=== PATIENT | female | born 1955 | race Caucasian/White ===

== ENCOUNTER 2018-04-17 08:24 | Inpatient (IN) ==
--- NOTE | 2018-04-17 09:01 | Emergency Department Note ---
Disposition Clinical Impression: Incidental lung nodule, greater than or equal to 8mm ARF (acute renal failure) Qualifiers: Acute renal failure type: unspecified Qualified Code(s): N17.9 - Acute kidney failure, unspecified Falls Qualifiers: Encounter type: initial encounter Qualified Code(s): W19.XXXA - Unspecified fall, initial encounter Toe fracture, left Qualifiers: Encounter type: initial encounter Toe: unspecified toe Fracture type: closed Fracture alignment: displaced Qualified Code(s): S92.912A - Unspecified fracture of left toe(s), initial encounter for closed fracture Disposition: Admitted As Inpatient Condition: Fair General Adult HPI - General Chief complaint: ED Weakness Stated complaint: fall/weakness Nursing Notes Reviewed: Yes Vital Signs Reviewed: Yes - History of Present Illness HPI Narrative: 62-year-old female presents to the emergency department via EMS after having multiple falls this past week. EMS states that family said patient has been acting normal per them. No changes in mental status. Patient states she was getting out of bed, started feeling dizzy as she has in the previous days, and fell lobar into a dresser, injuring her left fifth metatarsal. Patient states that she is not dizzy right now. She denies any chest pain, pressure, tightness , palpitations. She denies any fever. Patient denies any use of alcohol or drugs other than the morphine that she takes for chronic pain. Patient not reporting any pain anywhere else. Patient uses CPAP and oxygen at nighttime. - Related Data Home Medications Medication Instructions Recorded Confirmed Amitriptyline [Elavil] 50 mg PO HS 04/17/18 04/17/18 Cetirizine HCl [All Day Allergy] 10 mg PO DAILY 04/17/18 04/17/18 Citalopram Hydrobromide 40 mg PO DAILY 04/17/18 04/17/18 [Citalopram HBr] Esomeprazole Magnesium [Nexium] 40 mg PO BID 04/17/18 04/17/18 Gabapentin [Neurontin] 600 mg PO BID 04/17/18 04/17/18 Gemfibrozil [Lopid] 600 mg PO BID 04/17/18 04/17/18 Levothyroxine [Synthroid] 50 mcg PO 0630 04/17/18 04/17/18 Losartan [Cozaar] 25 mg PO DAILY 04/17/18 04/17/18 Mirtazapine [Remeron] 30 mg PO HS 04/17/18 04/17/18 Morphine Sulfate [Arymo ER] 60 mg PO BID 04/17/18 04/17/18 OxyCODONE/APAP 5/325 [Percocet 1 tab PO DAILY PRN 04/17/18 04/17/18 5/325 MG] Tizanidine HCl [Tizanidine HCl] 4 mg PO TID 04/17/18 04/17/18 hydrOXYzine pamoate [HydrOXYzine 50 mg PO BID 04/17/18 04/17/18 Pamoate] Allergies Allergy/AdvReac Type Severity Reaction Status Date / Time lisinopril Allergy See Verified 04/17/18 08:33 Comments mometasone furoate Allergy See Verified 04/17/18 08:33 [From Nasonex] Comments All systems ED: reviewed and negative except as stated. Review of Systems: As Per HPI Constitutional: Denies: fever Cardiovascular: Denies: chest pain Respiratory: Reports: dyspnea. Denies: cough Gastrointestinal: Denies: abdominal pain, nausea, vomiting Genitourinary: Denies: urgency, dysuria, frequency Musculoskeletal: Denies: back pain, neck pain Integumentary: Denies: rash Neurological: Reports: weakness. Denies: headache, numbness, paresthesias Physical Exam - General General appearance: appears intoxicated - Head Head exam: atraumatic, normocephalic - Eye Eye exam: Present: EOMI, miosis. Absent: scleral icterus, conjunctival injection - ENT ENT exam: normal exam, normal oropharynx - Neck Neck exam: Present: trachea midline - Chest Chest inspection: Present: normal inspection, symmetric chest wall rise - Respiratory Respiratory exam: Present: normal lung sounds bilaterally. Absent: respiratory distress, accessory muscle use - Cardiovascular Cardiovascular exam: Present: normal rhythm, tachycardia - Abdominal Exam Abdominal exam: Present: soft, Non-Tender. Absent: distention, guarding, rebound - Extremities Exam Extremities exam: Present: other (Tenderness along the base of the left fifth metatarsal, lower extremities neurovascularly intact). Absent: pedal edema - Back Exam Back exam: Present: full ROM. Absent: tenderness - Neurological Exam Neurological exam: Present: alert, oriented X3, CN II-XII intact - Psychiatric Psychiatric exam: Present: anxious - Skin Skin exam: Present: warm, dry, intact, normal color. Absent: rash Course Vital Signs Temperature 98.9 F 04/17/18 08:33 Pulse Rate 106 04/17/18 08:33 Respiratory Rate 15 04/17/18 08:33 Blood Pressure 111/98 04/17/18 08:33 O2 Sat by Pulse Oximetry 96 04/17/18 08:33 Temperature 98.9 F 04/17/18 11:44 Pulse Rate 73 04/17/18 11:44 Respiratory Rate 21 04/17/18 11:44 Blood Pressure 114/82 04/17/18 11:44 O2 Sat by Pulse Oximetry 94 04/17/18 11:44 Oxygen Delivery Oxygen Delivery Nasal Cannula Medical Decision Making - [facility] Narrative Medical decision making narrative: 62-year-old female presents emergency Department with having a week of episodes of weakness, dizziness, lightheadedness, falls. Electrocardiogram does not reveal any evidence of [id number], Brugada syndrome, hypertrophic cardiomyopathy, QT prolongation, or any other arrhythmia. We are obtaining a CT of the head and neck. We are also obtaining chest x-ray, left foot x-ray. D -dimer because patient is tachycardic and hypoxic on room air. Patient does not normally use oxygen on a daily basis, just at night. Head CT was negative for any evidence of intracranial hemorrhage. Chest x-ray was negative. Cervical spine CT revealed no acute fracture subluxation of the cervical spine. There was an 8 mm noncalcified nodule within the left lung apex. Foot x-ray revealed a nondisplaced oblique fracture of the distal fifth metacarpal. There is also mild displaced transverse fracture at the base of the possible findings of the fifth digit with nondisplaced fracture of the proximal third and fourth phalanges. I spoke with orthopedic surgery on the phone and they agree to follow the patient in the hospital. Patient was placed in a walking boot. Patient has creatinine here 3.23. Potassium is within normal limits. No known history of chronic kidney disease. Patient was given a liter of fluid here in the emergency department. Urinalysis was ordered but not obtained prior to patient being sent up to the floor. Patient hemodynamically stable and not in any acute distress at time of admission. Hospitalist agreed to accept admission. Head CT 04/17/18 08:35 IMPRESSION: 1. Study limited by patient motion artifact. 2. No acute intracranial abnormality. 3. No acute fracture or subluxation of the cervical spine. 4. Patient status post anterior cervical discectomy and fusion at the C4 through C6 levels. 5. There is an 8 mm noncalcified nodule within the left lung apex. Suggest further characterization with a routine non urgent follow-up chest CT at the patient's earliest convenience. D/ / 04/17/2018 10:01:26 Usama Leyva MD / raine Interpreting Provider: Usama Leyva MD Chest X-Ray 04/17/18 08:36 IMPRESSION: Negative chest. D/ / Chase Marie MD / Chase Marie MD Interpreting Provider: Chase Marie MD Cervical Spine CT 04/17/18 08:37 IMPRESSION: 1. Study limited by patient motion artifact. 2. No acute intracranial abnormality. 3. No acute fracture or subluxation of the cervical spine. 4. Patient status post anterior cervical discectomy and fusion at the C4 through C6 levels. 5. There is an 8 mm noncalcified nodule within the left lung apex. Suggest further characterization with a routine non urgent follow-up chest CT at the patient's earliest convenience. D/ / 04/17/2018 10:01:26 Usama Leyva MD / raine Interpreting Provider: Usama Leyva MD Foot X-Ray 04/17/18 08:55 IMPRESSION: 1. Acute mildly displaced transverse fracture at the base of the proximal phalanx of 5th digit with associated nondisplaced fractures of the proximal 3rd and 4th phalanges. 2. There is a subtle nondisplaced oblique fracture of the distal 5th metacarpal which appears subacute to chronic in etiology. D/ / 04/17/2018 09:29:24 Lynette Frye MD / raine Interpreting Provider: Lynette Frye MD Knee X-Ray 04/17/18 10:06 IMPRESSION: No acute osseous abnormality. Osteoarthritis with small joint effusion. D/ / 04/17/2018 10:32:00 Bony Cortes MD / [email or web address] Interpreting Provider: Bony Cortes MD - Lab Data Result diagrams: 04/17/18 08:52 04/17/18 08:52 Lab Results 04/17/18 04/17/18 04/17/18 Range/Units 08:52 08:52 08:52 WBC 7.8 (4.3-11.1) K/mcL RBC 3.60 L (3.82-4.97) M/mcL Hgb 11.3 L (11.5-15.4) g/dL Hct 33.7 L (35.3-44.9) % MCV 93.6 (83.0-100.0) fL MCH 31.4 (28.0-33.3) pg MCHC 33.5 (31.6-35.5) g/dL RDW 13.4 (11.5-14.5) % Plt Count 226 (140-400) K/mcL MPV 9.6 (9.4-12.4) fL Immature Gran % 0.3 (0-4) % Seg Neutrophils % 57.7 % Lymphocytes % 33.4 % Monocytes % 6.4 % Eosinophils % 2.1 % Basophils % 0.1 % Neutrophils # 4.5 (1.6-8.9) K/mcL Lymphocytes # 2.6 (0.6-4.6) K/mcL Monocytes # 0.5 (0.0-1.3) K/mcL Eosinophils # 0.2 (0.0-0.6) K/mcL Basophils # 0.0 (0.0-0.2) K/mcL Sodium 131 L (136-145) mEq/L Potassium 4.7 (3.5-5.1) mEq/L Chloride 97 L (98-107) mEq/L Carbon Dioxide 24 (23-29) mEq/L BUN 38 H (8-23) mg/dL Creatinine 3.23 H (0.60-1.20) mg/dL Est GFR ( Amer) 18 L (> 60) Est GFR (Non-Af Amer) 15 L (> 60) BUN/Creatinine Ratio 12 (6-26) Glucose 139 H (70-105) mg/dL Calculated Osmolality 283 (280-300) Calcium 9.0 (8.6-10.3) mg/dL Phosphorus 6.1 H (2.7-4.5) mg/dL Magnesium 2.6 (1.6-2.6) mg/dL Total Bilirubin 0.3 (0.3-1.0) mg/dL AST 17 (13-39) Units/L ALT 12 (7-52) Units/L Alkaline Phosphatase 74 (34-104) Units/L Ammonia (16-53) mcmol/L Troponin I < 0.03 (< 0.04) ng/mL B-Natriuretic Peptide 51 (Less than 100) pg/mL Serum Total Protein 7.2 (6.4-8.9) g/dL Albumin 4.4 (3.5-5.7) g/dL Globulin 2.8 (2.4-3.5) g/dL Albumin/Globulin Ratio 1.6 (1.1-2.2) Lipase 24 (11-82) Units/L TSH 0.882 (0.340-5.600) mcIU/mL 04/17/18 Range/Units 08:52 WBC (4.3-11.1) K/mcL RBC (3.82-4.97) M/mcL Hgb (11.5-15.4) g/dL Hct (35.3-44.9) % MCV (83.0-100.0) fL MCH (28.0-33.3) pg MCHC (31.6-35.5) g/dL RDW (11.5-14.5) % Plt Count (140-400) K/mcL MPV (9.4-12.4) fL Immature Gran % (0-4) % Seg Neutrophils % % Lymphocytes % % Monocytes % % Eosinophils % % Basophils % % Neutrophils # (1.6-8.9) K/mcL Lymphocytes # (0.6-4.6) K/mcL Monocytes # (0.0-1.3) K/mcL Eosinophils # (0.0-0.6) K/mcL Basophils # (0.0-0.2) K/mcL Sodium (136-145) mEq/L Potassium (3.5-5.1) mEq/L Chloride (98-107) mEq/L Carbon Dioxide (23-29) mEq/L BUN (8-23) mg/dL Creatinine (0.60-1.20) mg/dL Est GFR ( Amer) (> 60) Est GFR (Non-Af Amer) (> 60) BUN/Creatinine Ratio (6-26) Glucose (70-105) mg/dL Calculated Osmolality (280-300) Calcium (8.6-10.3) mg/dL Phosphorus (2.7-4.5) mg/dL Magnesium (1.6-2.6) mg/dL Total Bilirubin (0.3-1.0) mg/dL AST (13-39) Units/L ALT (7-52) Units/L Alkaline Phosphatase (34-104) Units/L Ammonia 45 (16-53) mcmol/L Troponin I (< 0.04) ng/mL B-Natriuretic Peptide (Less than 100) pg/mL Serum Total Protein (6.4-8.9) g/dL Albumin (3.5-5.7) g/dL Globulin (2.4-3.5) g/dL Albumin/Globulin Ratio (1.1-2.2) Lipase (11-82) Units/L TSH (0.340-5.600) mcIU/mL - EKG Data EKG #1 EKG attestation: Yes I reviewed and interpreted this EKG. EKG results narrative: 8:27 Ventricular rate 108 bpm, TN interval 136 ms, QRS duration 101 ms, QT 325 ms, QTC 388 ms, left axis deviation. Sinus tachycardia with a ventricular rate of 108 bpm. There is no evidence of any ischemic ST changes noted on this electrocardiogram. There is no previous electrocardiogram to compare this study to Attestation Statement - Attestation Attestation: I, Ramos Kelsey, examined this patient and my medical decision-making was reviewed with the AIRPLANE RENTAL CLERK/PA/Advanced Practice Nurse/Resident Physician. I agree with the documented findings, disposition and treatment plan as described except to the extent set forth below. 62-year-old female presents emergency Department with concerns of altered mental status and multiple falls over the past 2 days. Family members state the patient is under a large amount of stress recently as her 3 weeks ago, she moved into the daughter's house within the past week. Patient is unable to give a history regarding her case and presentation due to altered mental status. Patient has swelling of the left lateral foot. She complains of pain to the right knee. On laboratory evaluation the patient has an elevated creatinine of 3.23. Family states there is no history of chronic kidney disease. CT of the head and neck were negative for acute fracture or intracranial hemorrhage. X-ray of the left foot shows fractures of the fourth and fifth phalanges. It is unclear patient has been taking her correct prescribed medications. Patient will be admitted for further care and evaluation.
[2018-04-17 09:11] LABS: Basophils % 0.1 %; Eosinophils # 0.2 K/mcL (0.0-0.6); Eosinophils % 2.1 %; Hematocrit 33.7 % (35.3-44.9); Hemoglobin 11.3 g/dL (11.5-15.4); Immature Granulocytes % 0.3 % (0-4); Lymphocytes # 2.6 K/mcL (0.6-4.6); Lymphocytes % 33.4 %; Mean Corpuscular HGB Conc 33.5 g/dL (31.6-35.5); Mean Corpuscular Hemoglobin 31.4 pg (28.0-33.3); Mean Corpuscular Volume 93.6 fL (83.0-100.0); Mean Platelet Volume 9.6 fL (9.4-12.4); Monocytes # 0.5 K/mcL (0.0-1.3); Monocytes % 6.4 %; Neutrophils # 4.5 K/mcL (1.6-8.9); Platelet Count 226 K/mcL (140-400); Red Cell Distribution Width 13.4 % (11.5-14.5); Segmented Neutrophils % 57.7 %
[2018-04-17 09:25] LABS: Alanine Aminotransferase 12 Units/L (7-52); Albumin 4.4 g/dL (3.5-5.7); Albumin/Globulin Ratio 1.6 (1.1-2.2); Alkaline Phosphatase 74 Units/L (34-104); Aspartate Amino Transferase 17 Units/L (13-39); BUN/Creatinine Ratio 12 (6-26); Bilirubin,Total 0.3 mg/dL (0.3-1.0); Blood Urea Nitrogen 38 mg/dL (8-23); Carbon Dioxide 24 mEq/L (23-29); Chloride 97 mEq/L (98-107); Globulin 2.8 g/dL (2.4-3.5); Glucose 139 mg/dL (70-105); Lipase 24 Units/L (11-82); Osmolality,Calculated 283 (280-300); Potassium 4.7 mEq/L (3.5-5.1); Sodium 131 mEq/L (136-145); Total Protein 7.2 g/dL (6.4-8.9); Troponin I < 0.03 ng/mL (< 0.04); eGFR For African Americans 18 (> 60); eGFR For Non-African Americans 15 (> 60)
[2018-04-17] MEDS ORDERED: 0.9 % Sodium Chloride 1,000 ML IVC ONE (09:25)
[2018-04-17 09:38] LABS: Thyroid Stimulating Hormone 0.882 mcIU/mL (0.340-5.600)
[2018-04-17 10:24] LABS: Magnesium 2.6 mg/dL (1.6-2.6); Phosphorous 6.1 mg/dL (2.7-4.5)
[2018-04-17] MEDS ORDERED: *HR* OxyCODONE/APAP 5/325 TABLET PO PRN (11:34)
--- NOTE | 2018-04-17 11:50 | Internal Med History&Physical ---
Date of Encounter: 04/17/18 Time of Encounter: 11:37 Internal Medicine - H&P: HPI Chief complaint: fall Admitted From: Home Plans for Post Hospital Care: Transfer [facility] Facility History of present illness: Ms. Stewart is a 62 year old female who has history of COPD a fibromyalgia hypertension depression anxiety GERD hypothyroidism chronic in neck pain presenting emergency room for multiple falls this morning. Patient lives with her daughter, at home, this morning she woke up at 3 AM fell off her bed, then around the 7 AM she fell again when she was walking. Patient does have chronic movement disorder but never see a neurologist. And the family notes is that she has jerking movemnt, and unable to control her arm movement for 2 days. She is unable to control her movement. Patient denies family history of Hodgkin 's disease. She is also confused this morning per family. When I saw her, she is alert oriented 3 she does have difficult to find words. she did not remember the medication name. Otherwise she denies fever or chills denies productive cough no chest pain diarrhea or constipation. In the emergency room she had WBC 7.8 hemoglobin 11.3 sodium 131 creatinine 3.23, no baseline. She denies kidney disease. CT of the head and neck were negative for acute fracture or intracranial hemorrhage. X-ray of the left foot shows fractures of the fourth and fifth phalanges. Orthopedic surgery was called by the ED physician. Patient is going to be admitted for #1fall and movement disorder , MRI brain, consult neurology#2 altered mental status, check ABG #3 left foot fracture- ortho consult#4 acute renal failure, IVF #5 chronic neck and back pain Past Med Surg Social Fam HX - Past Medical History Medical history: COPD, hyperlipidemia, thyroid disease, other Psychiatric history: anxiety, depression - Social History Smoking Status: Never smoker Smokeless Tobacco Status: No Alcohol use: none Drug use: none Internal Medicine - H&P: Meds Amitriptyline [Elavil] 50 mg PO HS 04/17/18 [History] Cetirizine HCl [All Day Allergy] 10 mg PO DAILY 04/17/18 [History] Citalopram Hydrobromide [Citalopram HBr] 40 mg PO DAILY 04/17/18 [History] Esomeprazole Magnesium [Nexium] 40 mg PO BID 04/17/18 [History] Gabapentin [Neurontin] 600 mg PO BID 04/17/18 [History] Gemfibrozil [Lopid] 600 mg PO BID 04/17/18 [History] Levothyroxine [Synthroid] 50 mcg PO 0630 04/17/18 [History] Losartan [Cozaar] 25 mg PO DAILY 04/17/18 [History] Mirtazapine [Remeron] 30 mg PO HS 04/17/18 [History] Morphine Sulfate [Arymo ER] 60 mg PO BID 04/17/18 [History] OxyCODONE/APAP 5/325 [Percocet 5/325 MG] 1 tab PO DAILY PRN 04/17/18 [History] Tizanidine HCl [Tizanidine HCl] 4 mg PO TID 04/17/18 [History] hydrOXYzine pamoate [HydrOXYzine Pamoate] 50 mg PO BID 04/17/18 [History] 3 Allergy/AdvReac Type Severity Reaction Status Date / Time lisinopril Allergy See Verified 04/17/18 08:33 Comments mometasone furoate Allergy See Verified 04/17/18 08:33 [From Nasonex] Comments All Systems PM: A 10-system review of systems was performed and is negative for pertinent findings except as documented above in the HPI. - Constitutional Vitals: Temp Pulse Resp BP Pulse Ox 98.9 F 99 16 110/47 96 04/17/18 08:33 04/17/18 10:00 04/17/18 11:11 04/17/18 11:11 04/17/18 10:00 General appearance: Present: A&O X 3, morbidly obese, answers questions appropriately Exam: CONSTITUTIONAL: Patient appears as an age appropriate [default value] well developed, in no acute distress. EYES Clear sclerae, bilateral pupils are equal, reactive to light and accommodation. Extraocular movements are intact RESPIRATORY: No accessory muscle use, bilateral clear to auscultation, no wheezing, no crackles/rales. CARDIOVASCULAR: Regular heart rate, normal S1 and S2, no murmurs GASTROINTESTINAL: bowel sounds present, soft, no tenderness. No hepatosplenomegaly. No bilateral CVA tenderness MUSCULOSKELETAL: Joints in normal range of motion, no clubbing, no edema, no cyanosis. Bilateral peripheral pulses 2+ LYMPHATIC no lymphadenopathy in neck, groin and axilla bilaterally, no thyromegaly. NEUROLOGIC: CN II to XII are grossly intact, no focal neurological deficit. Deep tendon reflexes 2+ bilaterally. Normal light touch sensation to upper and lower extremity PSYCHIATRIC: Oriented x3, with good insight, mood is euthymic. No hallucinations or delusions. SKIN: Skin warm and dry, no rashes, no open wound. Internal Med - H&P Results - Labs CBC & Chem 7: 04/17/18 08:52 04/17/18 08:52 - Assessment and plan (1) ARF (acute renal failure) Current Visit: Yes Status: Acute Assessment and plan: Acute renal failure, unknown baseline we will give IV fluids follow up Creatinine tomorrow Qualifiers: Acute renal failure type: unspecified Qualified Code(s): N17.9 - Acute kidney failure, unspecified (2) Movement disorder Current Visit: Yes Status: Acute Assessment and plan: Patient has chronic movement disorder but never see a neurologist, she has increased jerking movement over last 2 days, throwing the cup all over. Will do MRI brain and a consult urologist (3) Foot fracture, left Current Visit: Yes Status: Acute Assessment and plan: Patient fell twice this morning x-ray shows left foot fracture, orthopediac surgery was consulted. Qualifiers: Encounter type: initial encounter Fracture type: closed Qualified Code(s) : S92.902A - Unspecified fracture of left foot, initial encounter for closed fracture (4) Metabolic encephalopathy Current Visit: Yes Status: Acute Assessment and plan: Patient was confused this morning but mental state has been improved per family. She is oriented 3 now but has some difficulty finding words . Pending UA, x-ray was negative. Will do MRI of brain. will check ABG to rule out CO2 narcosis. she had normal ammonia and ,LFT, normal TSH , negative troponin, normal white cells (5) Hypertension Current Visit: Yes Status: Acute Assessment and plan: holld losartan due to ARF Qualifiers: Hypertension type: essential hypertension Qualified Code(s): I10 - Essential (primary) hypertension (6) COPD (chronic obstructive pulmonary disease) Current Visit: Yes Status: Acute Assessment and plan: Patient is is a secondhand smoking, COPD on 2 L negative nasal cannula continuously at home. Qualifiers: COPD type: emphysema Emphysema type: unspecified Qualified Code(s): J43.9 - Emphysema, unspecified (7) Adult hypothyroidism Current Visit: Yes Status: Chronic Assessment and plan: Continue levathyroxine 50 Kaden M (8) Anxiety with depression Current Visit: Yes Status: Chronic Assessment and plan: Continue home meds (9) Morbid obesity Current Visit: Yes Status: Chronic Assessment and plan: Lifestyle modification (10) GISEL (obstructive sleep apnea) Current Visit: Yes Status: Acute Assessment and plan: Continue home CPAP at the night (11) Neck pain Current Visit: Yes Status: Acute Assessment and plan: Patient had neck surgeries the continue home pain medications - Time Spent With Patient Total time spent is greater than 50% in coordination of care (as documented) at patient's floor/unit and/or counseling patient:
[2018-04-17] MEDS ORDERED: Naloxone 0.4 MG/ML INJ IVP PRN (12:07)
[2018-04-17] MEDS: Ringers Solution, Lactated 1,000 ML IVC SCH (13:23)
[2018-04-17] MEDS ORDERED: tiZANidine 4 MG TABLET PO SCH (15:00)
--- NOTE | 2018-04-17 16:20 | Neurology - Consult Note ---
Date of Encounter: 04/17/18 Time of Encounter: 15:17 Assessment and Plan (1) Myoclonic jerking, massive Current Visit: Yes Status: Acute This patient was been having these jerking movements of the arm than the leg likely are myoclonic jerks most likely related to chronic narcotic use along with the renal failure. It is one of the most common side effect associated with morphine therapy especially in the context of renal failure. Currently she is on IV fluids suggested to continue follow the recommendations from nephrology. Certainly we need to decrease the dose of her morphine as she may continue to have these symptoms. Obviously we need to watch her for any withdrawal symptoms due to the fact that she is been on high doses for quite some time. MRI of the brain is been negative for any acute stroke or any other acute intracranial problems. These jerking movements are not seizures. No indication for any antiepileptic therapy at this time. Myoclonus has been described as a neuroexcitatory side effect of high doses of opioids. It has been seen almost exclusively in patients receiving after fpc administration of opioids. Gradual accumulation of opioid metabolites has been thought to cause opioid induced myoclonus. may try Naloxone has usually been ineffective in resolving this condition but some time it may help ? suggest aggressive hydration, and decreasing dose symptoms should decrease gradually at the same time also need to change to a different opioid that may benefit as well. Certainly she need to be on withdrawal precautions and fall precautions. Discussed with the patient and the daughter who is at the bedside (2) Chronic pain disorder Current Visit: Yes Status: Acute (3) Chronic narcotic use Current Visit: Yes Status: Acute (4) ARF (acute renal failure) Current Visit: Yes Status: Acute Qualifiers: Acute renal failure type: unspecified Qualified Code(s): N17.9 - Acute kidney failure, unspecified History of Present Illness HPI: Ms. Stewart is a 62 year old female with history of COPD a fibromyalgia hypertension depression anxiety GERD hypothyroidism chronic neck pain presented to the emergency room for multiple falls. According to the daughter who lives with the patient that she woke up at 3 AM fell off her bed, then around the 7 AM she fell again when she was walking. She has noticed that she is been having these jerking movements of her arms for the last several days that seems to be uncontrolled to the point that she is not able to hold anything in the hand and has these jerking mostly of the arms and also of the leg though she has these movements before but they were not as prominent as she is been having now in the last 2-3 days. She has also noted some confusion but not as bad beside that she did not have any convulsive activity no seizures or any history of seizures. She did have some difficulty with a gait and balance but not as as she is experiencing now she denies fever or chills denies productive cough no chest pain diarrhea or constipation. In the emergency room she had WBC 7.8 hemoglobin 11.3 sodium 131 creatinine 3.23, no baseline. She denies kidney disease. CT of the head and neck were negative for acute fracture or intracranial hemorrhage. Patient has an history of cervical fusion and chronic back problem and is been followed up at the pain clinic in [facility] and has been on morphine along with Percocet for breakthrough pain Past Med Surg Social Fam HX - Past Medical History Medical history: COPD, hyperlipidemia, thyroid disease, other Psychiatric history: anxiety, depression - Social History Smoking Status: Never smoker Smokeless Tobacco Status: No Alcohol use: none Drug use: none Medications and Allergies Amitriptyline [Elavil] 50 mg PO HS 04/17/18 [History] Cetirizine HCl [All Day Allergy] 10 mg PO DAILY 04/17/18 [History] Citalopram Hydrobromide [Citalopram HBr] 40 mg PO DAILY 04/17/18 [History] Esomeprazole Magnesium [Nexium] 40 mg PO BID 04/17/18 [History] Gabapentin [Neurontin] 600 mg PO BID 04/17/18 [History] Gemfibrozil [Lopid] 600 mg PO BID 04/17/18 [History] Levothyroxine [Synthroid] 50 mcg PO 0630 04/17/18 [History] Losartan [Cozaar] 25 mg PO DAILY 04/17/18 [History] Mirtazapine [Remeron] 30 mg PO HS 04/17/18 [History] Morphine Sulfate [Arymo ER] 60 mg PO BID 04/17/18 [History] OxyCODONE/APAP 5/325 [Percocet 5/325 MG] 1 tab PO DAILY PRN 04/17/18 [History] Tizanidine HCl [Tizanidine HCl] 4 mg PO TID 04/17/18 [History] hydrOXYzine pamoate [HydrOXYzine Pamoate] 50 mg PO BID 04/17/18 [History] 3 Allergy/AdvReac Type Severity Reaction Status Date / Time lisinopril Allergy See Verified 04/17/18 08:33 Comments mometasone furoate Allergy See Verified 04/17/18 08:33 [From Nasonex] Comments All Systems: The remainder of the systems were reviewed and are negative Physical Examination - Vital Signs Vital Signs: Initial Vital Signs Temp Pulse Resp BP Pulse Ox 98.9 F 106 15 111/98 96 04/17/18 08:33 04/17/18 08:33 04/17/18 08:33 04/17/18 08:33 04/17/18 08:33 - Exam Exam: GENERAL: Comfortable in no acute distress HEENT: Normal LUNGS: CTA HEART: RRR, S1 S2 Audible, no murmur EXTREMITIES: No Pedal edema. DETAILED NEUROLOGICAL EXAMINATION: MENTAL STATUS: Oriented to person, place, date and situation. Memory: knows the President, Aware of recent events Recent Memory Intact attention and concentration seems to be intact but she did have some confusion Cranial Nerve Examination: CN - II: Visual Acuity, Field of Vision Normal, Fundus examination: No disk edema, Pupils- size shape reaction to light and accommodation: All normal. CN III, IV, : External ocular movements were intact, Pupils were reactive, Nodrooping of the eyelids CN V: Sensation over the face to light touch and pinprick all normal. Corneal reflexes not tested, jaw jerk normal. CN VII: No facial asymmetry, no flattening of nasolabial folds, no difficulty in closing the eyes, no loss of forehead wrinkles, no difficulty in eye-closure, frowning raising eyebrows. CNVIII: No significant hearing loss CN IX, X: Uvula centralized not deviated, Gag reflex: Not tested CN X1: Sternocleidomastoid, trapezius, normal or evidence of any weakness. CN X11: No Dysarthria, no wasting or fibrilation f tongue muscles, no deviation, tongue muscle strength normal. Gait Examination: Deferred - Constitutional General appearance: comfortable - Neurologic Sensorimotor examination: intact Detailed motor examination: grossly full strength in all extremities Motor examination - right side: 4/5: deltoids, biceps, triceps, wrist flexion, wrist extension, replanter, hip flexors, tibialis Anterior, quadriceps, toe extension (EHL), plantarflexion Motor examination - left side: 4/5: deltoids, biceps, triceps, wrist flexion, wrist extension, hip flexors, replanter, quadriceps, tibialis Anterior, toe extension (EHL), plantarflexion Reflex and gait examination: intact Reflexes: Biceps: 1+, Triceps: 1+, Brachioradialis: 1+, Patella: 1+, Achilles: 1 + Mental Status Examination: awake, alert, oriented to person, oriented to place, follows commands appropriately, answers questions appropriately, follows simple commands, localizes noxious stimulation Cranial nerve examination: PERRL, EOMI, visual nails intact, no facial asymmetry is present, no dysarthria (Patient noted to have jerking of both upper and lower extremities off-and-on periodically without any changes in the consciousness.) Results - Laboratory Findings CBC and BMP: 04/17/18 08:52 04/17/18 08:52 Abnormal lab findings: Abnormal lab results RBC 3.60 M/mcL (3.82-4.97) L 04/17/18 08:52 Hgb 11.3 g/dL (11.5-15.4) L 04/17/18 08:52 Hct 33.7 % (35.3-44.9) L 04/17/18 08:52 Sodium 131 mEq/L (136-145) L 04/17/18 08:52 Chloride 97 mEq/L (98-107) L 04/17/18 08:52 BUN 38 mg/dL (8-23) H 04/17/18 08:52 Creatinine 3.23 mg/dL (0.60-1.20) H 04/17/18 08:52 Est GFR ( Amer) 18 (> 60) L 04/17/18 08:52 Est GFR (Non-Af Amer) 15 (> 60) L 04/17/18 08:52 Glucose 139 mg/dL (70-105) H 04/17/18 08:52 Phosphorus 6.1 mg/dL (2.7-4.5) H 04/17/18 08:52 - Diagnostic Findings Additional findings: MRI of the brain and CT of the head reported as negative. MRI of the cervical spine did not show any acute findings but limited study due to significant electrode artifact and due to the movement Consult Discharge Plan - Plan Referrals: NONE,PCP [Primary Care Provider] -
[2018-04-17 16:51] LABS: ABG Base Excess -1 mEq/L (-2 to 3); ABG HCO3 26 mEq/L (21-27); ABG Oxygen Saturation 98 % (95-98); ABG PCO2 50 mmHg (35-45); ABG PH 7.32 pH Units (7.32-7.45); ABG PO2 110 mmHg (85-104); ABG TCO2 27 mEq/L (20-26)
[2018-04-17] MEDS: *HR* Heparin 5,000 UNIT/ML VIAL SQ SCH ×2 (17:51→23:37)
[2018-04-17] MEDS: *HR* Morphine Sulfate SR (12 HR) 30 MG TABLET.ER PO SCH (20:02)
[2018-04-17] MEDS: tiZANidine 4 MG TABLET PO SCH (20:02)
[2018-04-17] MEDS: Gabapentin 300 MG CAPSULE PO SCH (20:02)
[2018-04-17] MEDS: Mirtazapine 15 MG TABLET PO SCH (20:02)
[2018-04-17] MEDS: clonazePAM 0.5 MG TABLET PO SCH (20:02)
[2018-04-17] MEDS: hydrOXYzine pamoate 25 MG CAPSULE PO SCH (20:02)
[2018-04-17] MEDS ORDERED: *HR* Morphine Sulfate SR (12 HR) 60 MG TABLET.ER PO SCH (21:00)
[2018-04-17 21:50] LABS: Bilirubin,Urine Negative (Negative); Blood,Urine Negative (Negative); Clarity,Urine Cloudy (Clear); Color,Urine Yellow (Yellow); Glucose,Urine (UA) Normal (Normal); Ketones,Urine Negative (Negative); Leukocyte Esterase,Urine Small (Negative); Nitrite,Urine Negative (Negative); PH,Urine 5.5 pH Units (5.0-8.0); Protein,Urine Trace mg/dL (Neg-Trace); Urobilinogen,Urine Normal (Normal)
[2018-04-17 21:52] LABS: Bacteria,Urine None Seen per hpf (None-Few); RBC,Urine 0-3 per hpf (0-3); Squamous Epithelial Cell,Urine Many per lpf (None-Few); WBC,Urine 15-30 per hpf (0-3)
[2018-04-17 22:05] LABS: Renal Epithelial Cells,Urine Few per hpf (None-Few)
[2018-04-18 02:09] LABS: Calcium 8.4 mg/dL (8.6-10.3); Chol/HDL Ratio 4.5 (0-4.9); Potassium 5.4 mEq/L (3.5-5.1)
[2018-04-18 02:28] LABS: Hematocrit 29.9 % (35.3-44.9); Hemoglobin 9.6 g/dL (11.5-15.4); Mean Corpuscular HGB Conc 32.1 g/dL (31.6-35.5); Mean Corpuscular Volume 93.4 fL (83.0-100.0); Mean Platelet Volume 9.6 fL (9.4-12.4); Platelet Count 193 K/mcL (140-400); Red Cell Distribution Width 13.1 % (11.5-14.5)
[2018-04-18] MEDS: Ringers Solution, Lactated 1,000 ML IVC SCH (04:21)
[2018-04-18 04:56] LABS: ABG Base Excess 4 mEq/L (-2 to 3); ABG HCO3 33 mEq/L (21-27); ABG Oxygen Saturation 95 % (95-98); ABG PCO2 72 mmHg (35-45); ABG PH 7.27 pH Units (7.32-7.45); ABG PO2 91 mmHg (85-104); ABG TCO2 35 mEq/L (20-26)
[2018-04-18] MEDS: *HR* Heparin 5,000 UNIT/ML VIAL SQ SCH ×2 (09:00→17:50)
[2018-04-18] MEDS: *HR* Morphine Sulfate SR (12 HR) 30 MG TABLET.ER PO SCH (09:03)
[2018-04-18] MEDS: Gabapentin 300 MG CAPSULE PO SCH ×2 (09:03→19:54)
[2018-04-18] MEDS: clonazePAM 0.5 MG TABLET PO SCH ×2 (09:03→19:54)
[2018-04-18] MEDS: hydrOXYzine pamoate 25 MG CAPSULE PO SCH ×2 (09:03→19:54)
[2018-04-18] MEDS: tiZANidine 4 MG TABLET PO SCH ×2 (09:04→19:55)
[2018-04-18] MEDS: Loratadine 10 MG TABLET PO SCH (09:04)
[2018-04-18 09:59] LABS: ABG Base Excess 4 mEq/L (-2 to 3); ABG HCO3 32 mEq/L (21-27); ABG Oxygen Saturation 96 % (95-98); ABG PCO2 65 mmHg (35-45); ABG PH 7.29 pH Units (7.32-7.45); ABG PO2 94 mmHg (85-104); ABG TCO2 34 mEq/L (20-26)
[2018-04-18] MEDS ORDERED: Haloperidol Lactate 5 MG/ML VIAL IM ONE (10:20)
[2018-04-18] MEDS ORDERED: Haloperidol Lactate 5 MG/ML VIAL ONE (10:21)
[2018-04-18 14:46] LABS: ABG Base Excess 5 mEq/L (-2 to 3); ABG HCO3 32 mEq/L (21-27); ABG Oxygen Saturation 94 % (95-98); ABG PCO2 66 mmHg (35-45); ABG PO2 79 mmHg (85-104); ABG TCO2 34 mEq/L (20-26)
[2018-04-18] MEDS ORDERED: Haloperidol Lactate 5 MG/ML VIAL IM PRN (17:38)
[2018-04-18] MEDS: Mirtazapine 15 MG TABLET PO SCH (19:54)
[2018-04-18] MEDS ORDERED: Haloperidol Lactate 5 MG/ML VIAL IM SCH (20:00)
--- NOTE | 2018-04-18 23:14 | Internal Med Progress Note ---
Date of Encounter: 04/18/18 Time of Encounter: 19:00 - Assessment and plan (1) ARF (acute renal failure) Status: Acute Assessment and plan: Likely secondary to volume contraction. She was likely not taking fluids at home. Her creatinine today is 1.63. It was a 3.23 is today. She gets IV fluids. Qualifiers: Acute renal failure type: unspecified Qualified Code(s): N17.9 - Acute kidney failure, unspecified (2) Altered mental state Status: Acute Assessment and plan: It is secondary to hypercapnia. Her hypercapnia is likely due to excessive amounts of opiates. She may have underlying obesity hyperventilation syndrome with or without obstructive sleep apnea. I will reduce her morphine sulfate substantially. Qualifiers: Altered mental status type: disorientation Qualified Code(s): R41.0 - Disorientation, unspecified (3) Acute on chronic respiratory failure with hypoxia and hypercapnia Status: Acute Assessment and plan: See above. (4) Foot fracture, left Status: Acute Assessment and plan: Orthopedic surgery's consulted. Qualifiers: Encounter type: initial encounter Fracture type: closed Qualified Code(s) : S92.902A - Unspecified fracture of left foot, initial encounter for closed fracture - Time Spent With Patient Total time spent is greater than 50% in coordination of care (as documented) at patient's floor/unit and/or counseling patient: - Subjective Interval history: Confused but mildly better than yesterday. She's on BiPAP. She gets IV fluids. No distress is seen. - Constitutional Vitals: Temp Pulse Resp BP Pulse Ox 98.8 F 88 18 111/68 100 04/18/18 20:02 04/18/18 20:02 04/18/18 20:02 04/18/18 20:02 04/18/18 20:02 General appearance: Present: A&O X 2, morbidly obese - Respiratory Respiratory exam: Present: CTAB. Absent: accessory muscle use, rales, rhonchi, wheezes - Cardiovascular Cardiovascular exam: Present: RRR, +S1, +S2. Absent: diastolic murmur, gallop, rubs, systolic murmur - GI/Abdominal GI/Abdominal exam: Present: normal bowel sounds, soft, no peritoneal signs. Absent: distended, tenderness - Skin Skin exam: Present: dry, intact Internal Medicine: Result - Labs CBC & Chem 7: 04/20/18 01:13 04/20/18 01:13 Labs: Short CBC 04/18/18 Range/Units 01:13 WBC 5.1 (4.3-11.1) K/mcL Hgb 9.6 L D (11.5-15.4) g/dL Hct 29.9 L (35.3-44.9) % Plt Count 193 (140-400) K/mcL BMP 04/18/18 01:13 Sodium 132 L Potassium 5.4 H Chloride 101 Carbon Dioxide 27 BUN 27 H Creatinine 1.63 H Glucose 126 H Calcium 8.4 L - ABG Interpretation ABG results: ABG ABG pH 7.30 pH Units (7.32-7.45) L 04/18/18 14:42 ABG pCO2 66 mmHg (35-45) H 04/18/18 14:42 ABG pO2 79 mmHg (85-104) L 04/18/18 14:42 ABG O2 Saturation 94 % (95-98) L 04/18/18 14:42 Consult Discharge Plan - Plan Instructions: Sleep Apnea Syndrome (DC), Chronic Hypertension (DC) Additional Instructions: IF SYMPTOMS RETURN OR WORSEN, PLEASE CALL YOUR PCP, CALL 911 OR GO TO THE NEAREST EMERGENCY ROOM. WEAR POST-OP SHOE WHILE AMBULATING UNTIL FOLLOW UP APPOINTMENT WITH PODIATRY, WEIGHT BEARING TOLERATED. TAKE ALL MEDICATIONS PRESCRIBED. ATTEND ALL FOLLOW UP APPOINTMENTS SCHEDULED. USE BI-PAP/C-PAP AT NIGHT WHILE SLEEPING- PULMONOLOGY WILL MAKE ANY ADJUSTMENTS YOU MAY NEED. Referrals: Remi Fitch DPM [Partnered Physician] - 04/29/18 9:00 am Nidhi Lugo MD [Partnered Physician] - 04/30/18 12:00 pm Westley Ryan DO [Resident] - (WEB REQUEST SUBMITTED - THE OFFICE WILL CALL YOU WITH AN APPOINTMENT)
[2018-04-19] MEDS: *HR* Heparin 5,000 UNIT/ML VIAL SQ SCH ×3 (00:20→16:45)
[2018-04-19 01:33] LABS: Hematocrit 31.3 % (35.3-44.9); Hemoglobin 10.2 g/dL (11.5-15.4); Mean Corpuscular HGB Conc 32.6 g/dL (31.6-35.5); Mean Corpuscular Hemoglobin 31.1 pg (28.0-33.3); Mean Corpuscular Volume 95.4 fL (83.0-100.0); Mean Platelet Volume 9.6 fL (9.4-12.4); Platelet Count 168 K/mcL (140-400); Red Blood Count 3.28 M/mcL (3.82-4.97); Red Cell Distribution Width 13.2 % (11.5-14.5)
[2018-04-19 01:55] LABS: BUN/Creatinine Ratio 15 (6-26); Blood Urea Nitrogen 13 mg/dL (8-23); Calcium 8.8 mg/dL (8.6-10.3); Carbon Dioxide 29 mEq/L (23-29); Chloride 103 mEq/L (98-107); Glucose 101 mg/dL (70-105); Osmolality,Calculated 282 (280-300); Potassium 4.5 mEq/L (3.5-5.1); Sodium 136 mEq/L (136-145); eGFR For African Americans > 60 (> 60); eGFR For Non-African Americans > 60 (> 60)
[2018-04-19 04:55] LABS: ABG Base Excess 7 mEq/L (-2 to 3); ABG HCO3 35 mEq/L (21-27); ABG Oxygen Saturation 96 % (95-98); ABG PCO2 67 mmHg (35-45); ABG PH 7.33 pH Units (7.32-7.45); ABG PO2 88 mmHg (85-104); ABG TCO2 37 mEq/L (20-26)
[2018-04-19] MEDS: Gabapentin 300 MG CAPSULE PO SCH ×2 (08:40→21:03)
[2018-04-19] MEDS: tiZANidine 4 MG TABLET PO SCH ×2 (08:41→21:02)
[2018-04-19] MEDS: clonazePAM 0.5 MG TABLET PO SCH ×2 (08:42→21:03)
[2018-04-19] MEDS: Loratadine 10 MG TABLET PO SCH (08:42)
[2018-04-19] MEDS: hydrOXYzine pamoate 25 MG CAPSULE PO SCH ×2 (08:42→21:01)
--- NOTE | 2018-04-19 14:03 | Neurology Progress Note ---
<Luke Rizo - Last Filed: 04/19/18 13:59> Date of Encounter: 04/19/18 Time of Encounter: 11:30 Assessment and Plan (1) Myoclonic jerking, massive Current Visit: Yes Status: Acute Greatly improved. No jerking was noted during patient interview. Patient reports some mild lingering jerking. Most likely ideology is there excitatory effect from morphine in the setting of kidney failure. Should completely resolve with improved kidney function. Consider decreasing morphine therapy. (2) Chronic pain disorder Current Visit: Yes Status: Acute (3) Chronic narcotic use Current Visit: Yes Status: Acute (4) ARF (acute renal failure) Current Visit: Yes Status: Acute Qualifiers: Acute renal failure type: unspecified Qualified Code(s): N17.9 - Acute kidney failure, unspecified Subjective Interval history: Myoclonic jerking has greatly improved with improved kidney function. She states that she is feeling much better at this point. Objective - Constitutional Vitals: Temp Pulse Resp BP Pulse Ox 98.8 F 97 16 102/66 90 04/19/18 10:28 04/19/18 10:28 04/19/18 10:28 04/19/18 10:28 04/19/18 10:28 - Neurological Exam Sensorimotor examination: Present: intact Motor Examination: Present: grossly full strength in all extremities Motor examination - left side: 4/5: plantarflexion Reflex and gait examination: intact Mental Status Examination: Present: awake, alert, oriented to person, oriented to place, follows commands appropriately, answers questions appropriately, follows simple commands, localizes noxious stimulation Cranial nerve examination: Present: PERRL, EOMI, visual nails intact, no facial asymmetry is present, no dysarthria Results - Laboratory Findings CBC and BMP: 04/19/18 01:10 04/19/18 01:10 Abnormal lab findings: Abnormal lab results WBC 3.7 K/mcL (4.3-11.1) L 04/19/18 01:10 RBC 3.28 M/mcL (3.82-4.97) L 04/19/18 01:10 Hgb 10.2 g/dL (11.5-15.4) L 04/19/18 01:10 Hct 31.3 % (35.3-44.9) L 04/19/18 01:10 ABG pCO2 67 mmHg (35-45) H 04/19/18 04:52 ABG HCO3 35 mEq/L (21-27) H 04/19/18 04:52 ABG Total CO2 37 mEq/L (20-26) H 04/19/18 04:52 ABG Base Excess 7 mEq/L (-2 to 3) H 04/19/18 04:52 Phosphorus 6.1 mg/dL (2.7-4.5) H 04/17/18 08:52 Cholesterol 206 mg/dL (< 200) H 04/18/18 01:13 LDL Cholesterol, Calc 134 mg/dL (0-99) H 04/18/18 01:13 Urine Clarity Cloudy (Clear) A 04/17/18 20:50 Ur Leukocyte Esterase Small (Negative) H 04/17/18 20:50 Urine Microscopic WBC 15-30 per hpf (0-3) H 04/17/18 20:50 Ur Squamous Epith Cells Many per lpf (None-Few) H 04/17/18 20:50 - Diagnostic Findings Additional findings: Head CT 04/17/18 08:35 IMPRESSION: 1. Study limited by patient motion artifact. 2. No acute intracranial abnormality. 3. No acute fracture or subluxation of the cervical spine. 4. Patient status post anterior cervical discectomy and fusion at the C4 through C6 levels. 5. 8 mm noncalcified nodule within the left lung apex. Suggest further characterization with a routine non urgent follow-up chest CT at the patient's earliest convenience. D/ / 04/17/2018 10:01:26 Usama Leyva MD / [email or web address] Interpreting Provider: Usama Leyva MD Cervical Spine CT 04/17/18 08:37 IMPRESSION: 1. Study limited by patient motion artifact. 2. No acute intracranial abnormality. 3. No acute fracture or subluxation of the cervical spine. 4. Patient status post anterior cervical discectomy and fusion at the C4 through C6 levels. 5. 8 mm noncalcified nodule within the left lung apex. Suggest further characterization with a routine non urgent follow-up chest CT at the patient's earliest convenience. D/ / 04/17/2018 10:01:26 Usama Leyva MD / raine Interpreting Provider: Usama Leyva MD Brain MRI 04/17/18 12:22 IMPRESSION: No acute infarct, intracranial hemorrhage, or significant mass effect. D/ / 04/17/2018 16:02:23 Bong Frye MD / raine Interpreting Provider: Bong Frye MD Cervical Spine MRI 04/17/18 12:23 IMPRESSION: Limited exam due to artifact. Multilevel degenerative disc disease as described. See above for details Multilevel postop change. D/ / Jose Galloway / Jose Galloway Interpreting Provider: Jose Galloway Consult Discharge Plan - Plan Referrals: NONE,PCP [Primary Care Provider] - <Lucita Leary I - Last Filed: 04/19/18 15:33> Date of Encounter: 04/19/18 Assessment and Plan (1) Myoclonic jerking, massive Current Visit: Yes Status: Acute Pt was seen and examined, my medical decision was reviewed with the Resident Physician, I agree with the documented findings, disposition and treatment as described except to the extent set forth below. Significant improvement as compared to the previous examination suggest, suggest to continue decrease the narcotics continue fluids as per nephrology recommendations, Lucita Leary MD (2) Chronic pain disorder Current Visit: Yes Status: Acute (3) Chronic narcotic use Current Visit: Yes Status: Acute (4) ARF (acute renal failure) Current Visit: Yes Status: Acute Qualifiers: Acute renal failure type: unspecified Qualified Code(s): N17.9 - Acute kidney failure, unspecified Objective - Constitutional Vitals: Temp Pulse Resp BP Pulse Ox 98.8 F 97 16 102/66 90 04/19/18 10:28 04/19/18 10:28 04/19/18 10:28 04/19/18 10:28 04/19/18 10:28 Results - Laboratory Findings CBC and BMP: 04/19/18 01:10 04/19/18 01:10 Abnormal lab findings: Abnormal lab results WBC 3.7 K/mcL (4.3-11.1) L 04/19/18 01:10 RBC 3.28 M/mcL (3.82-4.97) L 04/19/18 01:10 Hgb 10.2 g/dL (11.5-15.4) L 04/19/18 01:10 Hct 31.3 % (35.3-44.9) L 04/19/18 01:10 ABG pCO2 67 mmHg (35-45) H 04/19/18 04:52 ABG HCO3 35 mEq/L (21-27) H 04/19/18 04:52 ABG Total CO2 37 mEq/L (20-26) H 04/19/18 04:52 ABG Base Excess 7 mEq/L (-2 to 3) H 04/19/18 04:52 Phosphorus 6.1 mg/dL (2.7-4.5) H 04/17/18 08:52 Cholesterol 206 mg/dL (< 200) H 04/18/18 01:13 LDL Cholesterol, Calc 134 mg/dL (0-99) H 04/18/18 01:13 Urine Clarity Cloudy (Clear) A 04/17/18 20:50 Ur Leukocyte Esterase Small (Negative) H 04/17/18 20:50 Urine Microscopic WBC 15-30 per hpf (0-3) H 04/17/18 20:50 Ur Squamous Epith Cells Many per lpf (None-Few) H 04/17/18 20:50
--- NOTE | 2018-04-19 17:38 | Internal Med Progress Note ---
Date of Encounter: 04/19/18 Time of Encounter: 13:20 - Assessment and plan (1) ARF (acute renal failure) Current Visit: Yes Status: Acute Assessment and plan: Likely due to dehydration in the setting of ARB; hold losartan and avoid nephrotoxins. Reduce dose of opiates. Serum creatinine is currently normal, improved with IV hydration. Qualifiers: Acute renal failure type: unspecified Qualified Code(s): N17.9 - Acute kidney failure, unspecified (2) Acute on chronic respiratory failure with hypoxia and hypercapnia Current Visit: Yes Status: Acute Assessment and plan: Patient is noted to have nocturnal supplemental oxygen and CPAP at home. Admitted with acute metabolic encephalopathy, noted to have carbon dioxide narcosis and respiratory acidosis, improved with BiPAP and supplemental oxygen. She claims she was noncompliant with her CPAP machine for the last 2 weeks prior to admission. Patient needs outpatient pulmonology appointment. (3) COPD (chronic obstructive pulmonary disease) Current Visit: Yes Status: Chronic Assessment and plan: Not in acute exacerbation. Continue when necessary breathing treatments and supplemental oxygen. Qualifiers: COPD type: emphysema Emphysema type: unspecified Qualified Code(s): J43.9 - Emphysema, unspecified (4) Chronic narcotic use Current Visit: Yes Status: Chronic Assessment and plan: Neurology recommendations appreciated. Morphine is currently on hold, pain control with short-acting oxycodone. (5) Chronic pain disorder Current Visit: Yes Status: Chronic (6) Falls Current Visit: Yes Status: Acute Assessment and plan: Likely due to myoclonic jerks. Physical and occupational therapy evaluation pending. Qualifiers: Encounter type: initial encounter Qualified Code(s): W19.XXXA - Unspecified fall, initial encounter (7) Foot fracture, left Current Visit: Yes Status: Acute Assessment and plan: Left foot x-ray shows multiple acute fractures involving third, fourth and fifth phalanxes. Consulted podiatry. Qualifiers: Encounter type: initial encounter Fracture type: closed Qualified Code(s) : S92.902A - Unspecified fracture of left foot, initial encounter for closed fracture (8) Hypertension Current Visit: Yes Status: Chronic Qualifiers: Hypertension type: essential hypertension Qualified Code(s): I10 - Essential (primary) hypertension (9) Metabolic encephalopathy Current Visit: Yes Status: Resolved Assessment and plan: Currently at baseline mental status. (10) Movement disorder Current Visit: Yes Status: Acute Assessment and plan: Myoclonus, thought to be due to the [facility] use of opiates in the setting of acute kidney injury. Currently improved. CT head and MRI brain showed no acute abnormality. Neurology consult and follow-up appreciated. (11) GISEL (obstructive sleep apnea) Current Visit: Yes Status: Chronic (12) Adult hypothyroidism Current Visit: Yes Status: Chronic (13) Anxiety with depression Current Visit: Yes Status: Chronic (14) Morbid obesity Current Visit: Yes Status: Chronic - Time Spent With Patient Total time spent is greater than 50% in coordination of care (as documented) at patient's floor/unit and/or counseling patient: - Subjective Interval history: Feels better, improved tremors and jerks. No headache, blurred vision, chest pain, shortness of breath. Reports left knee and left foot pain. - Constitutional Vitals: Temp Pulse Resp BP Pulse Ox 98.8 F 78 18 109/69 93 04/19/18 16:29 04/19/18 16:29 04/19/18 16:29 04/19/18 16:29 04/19/18 16:29 General appearance: Present: A&O X 3, morbidly obese, answers questions appropriately - Respiratory Respiratory exam: Present: CTAB. Absent: accessory muscle use, rales, rhonchi, wheezes - Cardiovascular Cardiovascular exam: Present: RRR, +S1, +S2. Absent: diastolic murmur, gallop, rubs, systolic murmur - GI/Abdominal GI/Abdominal exam: Present: normal bowel sounds, soft (obese), no peritoneal signs. Absent: distended, tenderness - Extremities Exam Extremities exam: Present: full ROM, pedal edema (nonpitting), warm, radial pulses palpable and symmetrical. Absent: calf tenderness, cyanotic - Neurological Exam Neurological exam: Present: CN II-XII intact, oriented X3, no focal deficits. Absent: pronater drift, facial droop, speech deficit - Skin Skin exam: Present: dry, intact Internal Medicine: Result - Labs CBC & Chem 7: 04/19/18 01:10 04/19/18 01:10 Labs: Short CBC 04/19/18 Range/Units 01:10 WBC 3.7 L (4.3-11.1) K/mcL Hgb 10.2 L (11.5-15.4) g/dL Hct 31.3 L (35.3-44.9) % Plt Count 168 (140-400) K/mcL BMP 04/19/18 01:10 Sodium 136 Potassium 4.5 Chloride 103 Carbon Dioxide 29 BUN 13 Creatinine 0.88 Glucose 101 Calcium 8.8 - ABG Interpretation ABG results: ABG ABG pH 7.33 pH Units (7.32-7.45) 04/19/18 04:52 ABG pCO2 67 mmHg (35-45) H 04/19/18 04:52 ABG pO2 88 mmHg (85-104) 04/19/18 04:52 ABG O2 Saturation 96 % (95-98) 04/19/18 04:52 Consult Discharge Plan - Plan Referrals: NONE,PCP [Primary Care Provider] -
[2018-04-19] MEDS: Mirtazapine 15 MG TABLET PO SCH (21:03)
[2018-04-19] MEDS: *HR* HYDROcodone/Acet 5/325 mg TABLET PO PRN (21:03)
--- NOTE | 2018-04-19 22:13 | Podiatry Consult Note ---
Date of Encounter: 04/19/18 Time of Encounter: 22:11 Assessment and Plan (1) Foot fracture, left Current visit: Yes Status: Acute The patient was instructed that surgical intervention would be beneficial for her fifth digit fracture and possibly her fourth digit fracture. The patient was instructed that pin fixation would usually be used. The patient was also instructed that due to the fact that the alignment is not too awful we could treat this conservatively and fixated a later time if it bothers her. Patient relates understanding and states that she absolutely does not want to have surgery at this time and is happy with the alignment of her toes. At this time we will avoid surgical intervention and the patient will be able to remain weightbearing as tolerated with a surgical shoe. Patient will follow-up within one week of discharge for new radiographs. Qualifiers: Encounter type: initial encounter Fracture type: closed Qualified Code(s) : S92.902A - Unspecified fracture of left foot, initial encounter for closed fracture History of Present Illness Chief complaint: Left foot fracture HPI: Ms. Stewart is a 62 year old female who recently sustained an injury to her left foot. Patient relates significant pain. Patient denies any other pedal complaints. Past Med Surg Social Fam HX - Past Medical History Medical history: COPD, hyperlipidemia, thyroid disease, other Psychiatric history: anxiety, depression - Social History Smoking Status: Never smoker Smokeless Tobacco Status: No Alcohol use: none Drug use: none Medications and Allergies Amitriptyline [Elavil] 50 mg PO HS 04/17/18 [History] Cetirizine HCl [All Day Allergy] 10 mg PO DAILY 04/17/18 [History] Citalopram Hydrobromide [Citalopram HBr] 40 mg PO DAILY 04/17/18 [History] Esomeprazole Magnesium [Nexium] 40 mg PO BID 04/17/18 [History] Gabapentin [Neurontin] 600 mg PO BID 04/17/18 [History] Gemfibrozil [Lopid] 600 mg PO BID 04/17/18 [History] Levothyroxine [Synthroid] 50 mcg PO 30 04/17/18 [History] Losartan [Cozaar] 25 mg PO DAILY 04/17/18 [History] Mirtazapine [Remeron] 30 mg PO HS 04/17/18 [History] Morphine Sulfate [Arymo ER] 60 mg PO BID 04/17/18 [History] OxyCODONE/APAP 5/325 [Percocet 5/325 MG] 1 tab PO DAILY PRN 04/17/18 [History] Tizanidine HCl [Tizanidine HCl] 4 mg PO TID 04/17/18 [History] hydrOXYzine pamoate [HydrOXYzine Pamoate] 50 mg PO BID 04/17/18 [History] 3 Allergy/AdvReac Type Severity Reaction Status Date / Time milk Allergy Intermediate See Verified 04/19/18 17:48 Comments cinnamon Allergy Mild See Verified 04/19/18 17:48 Comments egg Allergy Mild See Verified 04/19/18 17:48 Comments lettuce Allergy Mild See Verified 04/19/18 17:48 Comments rice Allergy Mild See Verified 04/19/18 17:48 Comments lisinopril Allergy See Verified 04/17/18 08:33 Comments mometasone furoate Allergy See Verified 04/17/18 08:33 [From Nasonex] Comments All Systems Reviewed: The remainder of the systems were reviewed and are negative Physical Exam - Constitutional Vitals: Temp Pulse Resp BP Pulse Ox 99.9 F H 72 18 178/83 97 04/19/18 19:01 04/19/18 19:01 04/19/18 19:01 04/19/18 19:01 04/19/18 19:01 Exam: Edema noted to the left foot consistent with the injury sustained. Radiographic exam confirms fractures of the lateral digits. The majority of the fracture is at the fifth digit with mild displacement of the fifth digit. On a clinical view the fifth digit is relatively well aligned. Radiographically there is a deviation. Pedal pulses are palpable and capillary fill time is intact to the digits. There are no open lesions, abrasions, or ulcerations. Mild ecchymosis noted. Sensation appears to be intact to light touch to the level of the digits however difficult to assess due to an accurate responses from the patient. Results - Labs Result Diagrams: 04/19/18 01:10 04/19/18 01:10 Labs: Abnormal lab results WBC 3.7 K/mcL (4.3-11.1) L 04/19/18 01:10 RBC 3.28 M/mcL (3.82-4.97) L 04/19/18 01:10 Hgb 10.2 g/dL (11.5-15.4) L 04/19/18 01:10 Hct 31.3 % (35.3-44.9) L 04/19/18 01:10 ABG pCO2 67 mmHg (35-45) H 04/19/18 04:52 ABG HCO3 35 mEq/L (21-27) H 04/19/18 04:52 ABG Total CO2 37 mEq/L (20-26) H 04/19/18 04:52 ABG Base Excess 7 mEq/L (-2 to 3) H 04/19/18 04:52 Phosphorus 6.1 mg/dL (2.7-4.5) H 04/17/18 08:52 Cholesterol 206 mg/dL (< 200) H 04/18/18 01:13 LDL Cholesterol, Calc 134 mg/dL (0-99) H 04/18/18 01:13 Urine Clarity Cloudy (Clear) A 04/17/18 20:50 Ur Leukocyte Esterase Small (Negative) H 04/17/18 20:50 Urine Microscopic WBC 15-30 per hpf (0-3) H 04/17/18 20:50 Ur Squamous Epith Cells Many per lpf (None-Few) H 04/17/18 20:50 H & H 04/19/18 Range/Units 01:10 Hgb 10.2 L (11.5-15.4) g/dL Hct 31.3 L (35.3-44.9) % All other labs normal. Consult Discharge Plan - Plan Referrals: NONE,PCP [Primary Care Provider] -
[2018-04-20] MEDS: *HR* Heparin 5,000 UNIT/ML VIAL SQ SCH ×2 (00:48→09:05)
[2018-04-20 01:44] LABS: Hematocrit 30.5 % (35.3-44.9); Hemoglobin 10.2 g/dL (11.5-15.4); Mean Corpuscular HGB Conc 33.4 g/dL (31.6-35.5); Mean Corpuscular Hemoglobin 30.9 pg (28.0-33.3); Mean Corpuscular Volume 92.4 fL (83.0-100.0); Mean Platelet Volume 9.4 fL (9.4-12.4); Platelet Count 207 K/mcL (140-400); Red Cell Distribution Width 12.9 % (11.5-14.5)
[2018-04-20 02:03] LABS: BUN/Creatinine Ratio 11 (6-26); Blood Urea Nitrogen 11 mg/dL (8-23); Calcium 8.8 mg/dL (8.6-10.3); Carbon Dioxide 31 mEq/L (23-29); Chloride 101 mEq/L (98-107); Glucose 116 mg/dL (70-105); Osmolality,Calculated 286 (280-300); Potassium 4.1 mEq/L (3.5-5.1); Sodium 138 mEq/L (136-145); eGFR For African Americans > 60 (> 60); eGFR For Non-African Americans 54 (> 60)
[2018-04-20] MEDS: *HR* HYDROcodone/Acet 5/325 mg TABLET PO PRN ×2 (03:20→12:31)
--- NOTE | 2018-04-20 06:47 | Electrocardiograph Report ---
[address] [place], [place] [address] Test Date: 2018-04-17 Pat Name: Dinah Stewart Department: 103 Room: [facility] Gender: F [employer] A[employer]: AM : 1955 Requested By: Giuliano Ceaj Order Number: [id number] Reading MD: Jamison Thomson Measurements Intervals [place] Rate: 108 P: 40 GA: 136 QRS: -2 QRSD: 101 T: 20 QT: 325 QTc: 388 Interpretive Statements SINUS TACHYCARDIA LOW QRS VOLTAGE IN PRECORDIAL LEADS INFERIOR MYOCARDIAL INFARCTION, PROBABLY OLD Electronically Signed On 04-20-2018 6:46:07 EDT by Jamison Thomson
[2018-04-20] MEDS ORDERED: cloNIDine HCl 0.1 MG TABLET PO SCH (09:00)
[2018-04-20] MEDS: Gabapentin 300 MG CAPSULE PO SCH (09:07)
[2018-04-20] MEDS: hydrOXYzine pamoate 25 MG CAPSULE PO SCH (09:07)
[2018-04-20] MEDS: Loratadine 10 MG TABLET PO SCH (09:08)
[2018-04-20] MEDS: tiZANidine 4 MG TABLET PO SCH (09:08)
[2018-04-20] MEDS: clonazePAM 0.5 MG TABLET PO SCH (09:08)
[2018-04-20] MEDS ORDERED: hydrALAZINE 25 MG TABLET PO SCH (12:55)
--- NOTE | 2018-04-20 14:10 | Discharge Summary ---
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 Left foot/phalangeal fractures, Podiatry f/up; Orders not resulted at time of discharge: Pending orders 04/21/18 04:00 BMP [Basic Metabolic Panel] AM 0400 CBC no Diff [Complete Blood Count w/o Diff] [HEME] AM 0400 Date of Encounter: 04/20/18 Time of Encounter: 14:09 - Discharge Diagnosis (1) ARF (acute renal failure) Priority: Primary Status: Acute Qualifiers: Acute renal failure type: unspecified Qualified Code(s): N17.9 - Acute kidney failure, unspecified (2) Acute on chronic respiratory failure with hypoxia and hypercapnia Priority: Primary Status: Acute (3) COPD (chronic obstructive pulmonary disease) Priority: Secondary Status: Chronic Qualifiers: COPD type: emphysema Emphysema type: unspecified Qualified Code(s): J43.9 - Emphysema, unspecified (4) Chronic narcotic use Priority: Secondary Status: Chronic (5) Chronic pain disorder Priority: Secondary Status: Chronic (6) Falls Priority: Primary Status: Acute Qualifiers: Encounter type: initial encounter Qualified Code(s): W19.XXXA - Unspecified fall, initial encounter (7) Foot fracture, left Priority: Primary Status: Acute Qualifiers: Encounter type: initial encounter Fracture type: closed Qualified Code(s) : S92.902A - Unspecified fracture of left foot, initial encounter for closed fracture (8) Hypertension Priority: Secondary Status: Chronic Qualifiers: Hypertension type: essential hypertension Qualified Code(s): I10 - Essential (primary) hypertension (9) Metabolic encephalopathy Priority: Primary Status: Resolved (10) Movement disorder Priority: Primary Status: Acute (11) GISEL (obstructive sleep apnea) Priority: Secondary Status: Chronic (12) Adult hypothyroidism Priority: Secondary Status: Chronic (13) Anxiety with depression Priority: Secondary Status: Chronic (14) Morbid obesity Priority: Secondary Status: Chronic Hospital course: Ms. Stewart is a 62 year old female with the above medical problems, who has been on chronic long-acting opiate and analgesics, presented to the emergency room with confusion, recurrent falls and leg weakness along with involuntary tremors and movements. She likely had metabolic/uremic encephalopathy due to acute kidney injury likely secondary to dehydration, which completely resolved with IV hydration. CT head and MRI brain showed no acute abnormalities. Urology was consulted and patient was diagnosed with mild clonus likely secondary to chronic opioid use. Morphine has been discontinued during this admission and patient was continued on when necessary Percocet for pain control and she did well. She reported left foot pain, x-ray of left foot showed multiple phalangeal fractures. Podiatry was consulted and patient was agreeable to conservative management with alignment and surgical shoe. She is instructed to remain weightbearing as tolerated. Physical and occupational therapy evaluation recommended no needs. Patient is currently medically stable for discharge with outpatient follow-up. Discharge discussed with: patient, nurse - Time Spent with Patient Total time spent providing and/or coordinating discharge services: Greater than 30 minutes (45 min) - Discharge Medications Home Medications: Amitriptyline [Elavil] 50 mg PO HS 04/17/18 [History] Cetirizine HCl [All Day Allergy] 10 mg PO DAILY 04/17/18 [History] Citalopram Hydrobromide [Citalopram HBr] 40 mg PO DAILY 04/17/18 [History] Esomeprazole Magnesium [Nexium] 40 mg PO BID 04/17/18 [History] Gabapentin [Neurontin] 600 mg PO BID 04/17/18 [History] Gemfibrozil [Lopid] 600 mg PO BID 04/17/18 [History] Levothyroxine [Synthroid] 50 mcg PO 0630 04/17/18 [History] Losartan [Cozaar] 25 mg PO DAILY 04/17/18 [History] Mirtazapine [Remeron] 30 mg PO HS 04/17/18 [History] OxyCODONE/APAP 5/325 [Percocet 5/325 MG] 1 tab PO DAILY PRN 04/17/18 [History] Tizanidine HCl 4 mg PO TID 04/17/18 [History] hydrOXYzine pamoate [HydrOXYzine Pamoate] 50 mg PO BID 04/17/18 [History] Allergies/Adverse Reactions: 3 Allergy/AdvReac Type Severity Reaction Status Date / Time milk Allergy Intermediate See Verified 04/19/18 17:48 Comments cinnamon Allergy Mild See Verified 04/19/18 17:48 Comments egg Allergy Mild See Verified 04/19/18 17:48 Comments lettuce Allergy Mild See Verified 04/19/18 17:48 Comments rice Allergy Mild See Verified 04/19/18 17:48 Comments lisinopril Allergy See Verified 04/17/18 08:33 Comments mometasone furoate Allergy See Verified 04/17/18 08:33 [From Nasonex] Comments Date of admission: 04/17/18 14:22 Primary care physician: PCP NONE Consults: 04/19/18 13:57 Consult to Podiatry [CONS] Routine Consulting Provider: Podiatry [facility] Reason for Consult: Left foot fractures Call Completed: Yes Discharging clinician: Jyoti Styles Anticipated date of discharge: 04/20/18 - Constitutional Vitals: Temp Pulse Resp BP Pulse Ox 98.5 F 85 16 161/88 93 04/20/18 11:27 04/20/18 11:27 04/20/18 11:27 04/20/18 11:27 04/20/18 11:27 General appearance: Present: A&O X 3, morbidly obese, answers questions appropriately - Cardiovascular Cardiovascular exam: Present: RRR, +S1, +S2. Absent: diastolic murmur, gallop, rubs, systolic murmur - Patient Status Disposition: Home, Self-Care Condition: Fair Functional capacity at discharge: independent ambulation Overall status at discharge: patient is progressing back to baseline - Discharge Instructions Instructions: Sleep Apnea Syndrome (DC), Chronic Hypertension (DC) Follow Up With: Remi Fitch DPM [Partnered Physician] - 04/29/18 9:00 am Nidhi Lugo MD [Partnered Physician] - 04/30/18 12:00 pm Westley Ryan DO [Resident] - (WEB REQUEST SUBMITTED - THE OFFICE WILL CALL YOU WITH AN APPOINTMENT) Additional Instructions: IF SYMPTOMS RETURN OR WORSEN, PLEASE CALL YOUR PCP, CALL 911 OR GO TO THE NEAREST EMERGENCY ROOM. WEAR POST-OP SHOE WHILE AMBULATING UNTIL FOLLOW UP APPOINTMENT WITH PODIATRY, WEIGHT BEARING TOLERATED. TAKE ALL MEDICATIONS PRESCRIBED. ATTEND ALL FOLLOW UP APPOINTMENTS SCHEDULED. USE BI-PAP/C-PAP AT NIGHT WHILE SLEEPING- PULMONOLOGY WILL MAKE ANY ADJUSTMENTS YOU MAY NEED. - Diet and Activity Activity: resume usual activities as tolerated, wear oxygen at night (wear CPAP at night) Diet: low fat, low cholesterol, low salt diet
[2018-04-20 14:56] VITALS: BP 159/84
== END 2018-04-20 16:01 | disposition home or self-care (01) | DRG 91 ==
LOC: 3NENU 08:24 → EMEROO 08:24 → 3NENU 11:30 → SUATTDRO 14:22
PROVIDERS: ADMIT Hospitalist; ATTEND Internal Medicine

== ENCOUNTER 2022-01-17 19:24 | Observation (INO) ==
[2022-01-17] MEDS ORDERED: Ipratropium/Albuterol Neb 3 ML IH ONE (21:25)
[2022-01-17 22:08] LABS: Basophils % 0.3 %; Hematocrit 37.5 % (35.3-44.9); Hemoglobin 12.4 g/dL (11.5-15.4); Immature Granulocytes % 0.3 % (0-4); Lymphocytes # 1.3 K/mcL (0.6-4.6); Lymphocytes % 35.7 %; Mean Corpuscular HGB Conc 33.1 g/dL (31.6-35.5); Mean Corpuscular Hemoglobin 29.3 pg (28.0-33.3); Mean Corpuscular Volume 88.7 fL (83.0-100.0); Mean Platelet Volume 9.2 fL (9.4-12.4); Monocytes # 0.3 K/mcL (0.0-1.3); Monocytes % 8.9 %; Platelet Count 190 K/mcL (140-400); Red Blood Count 4.23 M/mcL (3.82-4.97); Red Cell Distribution Width 13.3 % (11.5-14.5); Segmented Neutrophils % 54.8 %; White Blood Count 3.6 K/mcL (4.3-11.1)
[2022-01-17 22:15] LABS: Prothrombin Time 11.3 Seconds (9.4-12.1)
[2022-01-17] MEDS ORDERED: Isovue-370 500 ML BOTTLE IVP ONE (22:17)
[2022-01-17 22:20] LABS: Albumin 3.9 g/dL (3.5-5.7); Albumin/Globulin Ratio 1.3 (1.1-2.2); Bilirubin,Total 0.3 mg/dL (0.3-1.0); Calcium 8.8 mg/dL (8.6-10.3); Globulin 3.1 g/dL (2.4-3.5); Magnesium 1.8 mg/dL (1.6-2.6); Potassium 3.8 mEq/L (3.5-5.1)
[2022-01-17] MEDS ORDERED: Albuterol 2.5 MG/3 ML NEBULIZER IH ONE (23:30)
[2022-01-18] MEDS ORDERED: Melatonin 3 MG TABLET PO PRN (03:24)
[2022-01-18] MEDS ORDERED: Naloxone 0.4 MG/ML INJ IVP PRN (03:24)
[2022-01-18] MEDS ORDERED: 0.9 % Sodium Chloride 1,000 ML IVC SCH (06:30)
[2022-01-18 08:41] LABS: Hematocrit 38.2 % (35.3-44.9); Hemoglobin 12.8 g/dL (11.5-15.4); Immature Granulocytes % 0.4 % (0-4); Lymphocytes # 0.6 K/mcL (0.6-4.6); Lymphocytes % 23.1 %; Mean Corpuscular HGB Conc 33.5 g/dL (31.6-35.5); Mean Corpuscular Hemoglobin 29.4 pg (28.0-33.3); Mean Corpuscular Volume 87.8 fL (83.0-100.0); Mean Platelet Volume 9.1 fL (9.4-12.4); Monocytes # 0.1 K/mcL (0.0-1.3); Monocytes % 4.6 %; Neutrophils # 1.7 K/mcL (1.6-8.9); Platelet Count 194 K/mcL (140-400); Red Blood Count 4.35 M/mcL (3.82-4.97); Red Cell Distribution Width 13.3 % (11.5-14.5); Segmented Neutrophils % 71.9 %; White Blood Count 2.4 K/mcL (4.3-11.1)
[2022-01-18] MEDS: Budesonide/Formoterol 160/4.5 1 PUFF INH IH SCH ×2 (08:58→19:31)
[2022-01-18 09:01] LABS: Alanine Aminotransferase 31 Units/L (7-52); Albumin 4.2 g/dL (3.5-5.7); Albumin/Globulin Ratio 1.3 (1.1-2.2); Alkaline Phosphatase 101 Units/L (34-104); Aspartate Amino Transferase 37 Units/L (13-39); BUN/Creatinine Ratio 12 (6-26); Bilirubin,Total 0.2 mg/dL (0.3-1.0); Blood Urea Nitrogen 12 mg/dL (8-23); Carbon Dioxide 31 mEq/L (23-29); Chloride 94 mEq/L (98-107); Globulin 3.2 g/dL (2.4-3.5); Glucose 179 mg/dL (70-105); Osmolality,Calculated 280 (280-300); Potassium 3.7 mEq/L (3.5-5.1); Sodium 133 mEq/L (136-145); Total Protein 7.4 g/dL (6.4-8.9); eGFR For African Americans > 60 (> 60); eGFR For Non-African Americans 57 (> 60)
[2022-01-18 14:20] LABS: Bacteria,Urine Few per hpf (None-Few); Bilirubin,Urine Negative (Negative); Blood,Urine Negative (Negative); Clarity,Urine Clear (Clear); Color,Urine Light-Yellow (Yellow); Glucose,Urine (UA) Normal (Normal); Ketones,Urine Negative (Negative); Leukocyte Esterase,Urine Negative (Negative); Nitrite,Urine Negative (Negative); PH,Urine 6.5 pH Units (5.0-8.0); Protein,Urine 30 mg/dL (Neg-Trace); RBC,Urine 0-3 per hpf (0-3); Specific Gravity,Urine 1.015 (1.010-1.025); Urobilinogen,Urine Normal (Normal); WBC,Urine 0-3 per hpf (0-3)
[2022-01-18] MEDS ORDERED: Acetaminophen 325 MG TABLET PO PRN (19:55)
[2022-01-19] MEDS: Gabapentin 300 MG CAPSULE PO SCH ×3 (00:49→14:18)
[2022-01-19] MEDS: hydrALAZINE 10 MG TABLET PO SCH ×2 (00:49→08:55)
[2022-01-19] MEDS: *HR* OxyCODONE/APAP 10/325 TABLET PO PRN ×2 (00:49→08:54)
[2022-01-19 02:05] LABS: Hematocrit 36.8 % (35.3-44.9); Hemoglobin 12.7 g/dL (11.5-15.4); Immature Granulocytes % 0.4 % (0-4); Lymphocytes # 0.9 K/mcL (0.6-4.6); Lymphocytes % 17.2 %; Mean Corpuscular HGB Conc 34.5 g/dL (31.6-35.5); Mean Corpuscular Hemoglobin 30.2 pg (28.0-33.3); Mean Corpuscular Volume 87.4 fL (83.0-100.0); Mean Platelet Volume 9.7 fL (9.4-12.4); Monocytes # 0.4 K/mcL (0.0-1.3); Monocytes % 8.3 %; Neutrophils # 3.9 K/mcL (1.6-8.9); Platelet Count 237 K/mcL (140-400); Red Blood Count 4.21 M/mcL (3.82-4.97); Red Cell Distribution Width 13.4 % (11.5-14.5); Segmented Neutrophils % 74.1 %
[2022-01-19 02:06] LABS: White Blood Count 5.3 K/mcL (4.3-11.1)
[2022-01-19 02:27] LABS: Alanine Aminotransferase 26 Units/L (7-52); Albumin/Globulin Ratio 1.2 (1.1-2.2); Alkaline Phosphatase 90 Units/L (34-104); Aspartate Amino Transferase 32 Units/L (13-39); BUN/Creatinine Ratio 15 (6-26); Bilirubin,Direct 0.1 mg/dL (0.0-0.2); Bilirubin,Indirect 0.2 mg/dL (0.0-1.0); Bilirubin,Total 0.3 mg/dL (0.3-1.0); Blood Urea Nitrogen 14 mg/dL (8-23); C-Reactive Protein < 5 mg/L (Less than 10); Calcium 9.1 mg/dL (8.6-10.3); Carbon Dioxide 30 mEq/L (23-29); Chloride 93 mEq/L (98-107); Globulin 3.3 g/dL (2.4-3.5); Glucose 140 mg/dL (70-105); Osmolality,Calculated 279 (280-300); Potassium 4.1 mEq/L (3.5-5.1); Sodium 133 mEq/L (136-145); Total Protein 7.3 g/dL (6.4-8.9); eGFR For African Americans > 60 (> 60); eGFR For Non-African Americans > 60 (> 60)
[2022-01-19] MEDS ORDERED: *HR* Enoxaparin 40 MG/0.4 ML SYRINGE SQ SCH (06:00)
[2022-01-19] MEDS: Budesonide/Formoterol 160/4.5 1 PUFF INH IH SCH (07:33)
[2022-01-19] MEDS ORDERED: tiZANidine 4 MG TABLET PO SCH (09:00)
[2022-01-19] MEDS ORDERED: hydroCHLOROthiazide 25 MG TABLET PO SCH (09:00)
[2022-01-19 10:37] VITALS: BP 91/57; PULSE 69; TEMP 96.9
[2022-01-19 15:40] VITALS: O2SAT 92
== END 2022-01-19 16:35 | disposition home or self-care (01) ==
LOC: EMEROOARM 19:24 → 2NENU 19:24 → SUATTDRO 01-18 01:06 → 2NENU 01-18 02:20
PROVIDERS: ADMIT Student in an Organized Health Care Education/Training Program; ATTEND Student in an Organized Health Care Education/Training Program